=== PATIENT | female | born 1935 | race Caucasian/White ===

== ENCOUNTER 2016-10-11 15:12 | Emergency (ER) | payer MEDICARE, BC ==
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
--- OUTSIDE RECORDS SUMMARY | 2016-10-11 15:50 | XMS REPORT | Summary of Care ---
:1935 Author Organization [facility] Address [address] [place] [address] [id number] [place] [address] Care Team Providers Name Role Phone Domingo Salas Primary Care Physician Encounter Date(s): 09/14/16 - 09/14/16 [facility] [address] [id number] Discharge Diagnosis: Hypertension Discharge Diagnosis: Heart block Discharge Diagnosis: CVA - Cerebrovascular accident Discharge Diagnosis: Hypercholesterolemia Discharge Disposition: 01 Discharged to Home or Self Care Attending Physician: Guanaco Monge, Vital Signs No data available for this section Problem List Condition Effective Dates Status Health Status Informant Cancer, uterine(Confirmed) Active Cardiac pacemaker(Confirmed) 2007 Active Heart block(Confirmed) Active CVA - Cerebrovascular Active accident(Confirmed) Dementia(Confirmed) Active Depression(Confirmed) Active Diabetes mellitus(Confirmed) Active Vertigo(Confirmed) Active Hyperlipidemia(Confirmed) Active Hypercholesterolemia(Confirmed) Active Hypertension(Confirmed) Active Allergies, Adverse Reactions, Alerts No Known Medication Allergies Medications amLODIPine 2.5 mg oral tablet 1 tab(s), Oral, Daily, 0 Refill(s), Start Date: 06/11/14 11:41:00 CDT Start Date: 06/11/14 Status: Orderedaspirin 81 mg oral tablet 1 tab(s), Oral, Daily, 0 Refill(s), Start Date: 06/11/14 11:40:00 CDT Start Date: 06/11/14 Status: OrderedCalcium 600+D 1 tab(s), Oral, TID, 0 Refill(s), Start Date: 06/11/14 11:40:00 CDT Start Date: 06/11/14 Status: Ordereddonepezil 10 mg oral tablet 1 tab(s), Oral, HS, 0 Refill(s), Start Date: 06/11/14 11:39:00 CDT Start Date: 06/11/14 Status: Orderedlosartan 100 mg oral tablet 1 tab(s), Oral, Daily, 0 Refill(s), Start Date: 06/11/14 11:39:00 CDT Start Date: 06/11/14 Status: OrderedmetFORMIN 1000 mg oral tablet, extended release 1 tab(s), Oral, BID, 0 Refill(s), Start Date: 06/11/14 11:39:00 CDT Start Date: 06/11/14 Status: Orderedmultivitamin 1 tab(s), Oral, Daily, 0 Refill(s), Start Date: 06/11/14 11:40:00 CDT Start Date: 06/11/14 Status: OrderedNamenda 10 mg oral tablet 1 tab(s), Oral, BID, 0 Refill(s), Start Date: 06/11/14 11:39:00 CDT Start Date: 06/11/14 Status: Orderedoxybutynin 5 mg oral tablet 1 tab(s), Oral, QID, 0 Refill(s), Start Date: 06/11/14 11:38:00 CDT Start Date: 06/11/14 Status: Orderedsimvastatin 40 mg oral tablet 1 tab(s), Oral, HS, 0 Refill(s), Start Date: 06/11/14 11:39:00 CDT Start Date: 06/11/14 Status: Ordered Results No data available for this section Immunizations No data available for this section Procedures Procedure Date Related Diagnosis Body Site Implantation of heart pacemaker1 06/22/07 Hysterectomy Total replacement of right knee joint 1[employer] pacemaker Social History No data available for this section Assessment and Plan No data available for this section
[2016-10-11 16:53] VITALS: BP 188/78
== END 2016-10-11 17:00 | disposition home or self-care (01) ==
LOC: ER 15:12
DX: S40.012A Contusion of left shoulder, initial encounter (principal); W18.2XXA Fall in (into) shower or empty bathtub, initial encounter; Y93.E1 Activity, personal bathing and showering; Y92.002 Bathroom of unspecified non-institutional (private) residence as the place of occurrence of the external cause; M25.552 Pain in left hip; E11.9 Type 2 diabetes mellitus without complications; Z85.50 Personal history of malignant neoplasm of unspecified urinary tract organ

== ENCOUNTER 2017-01-14 12:36 | Inpatient (IN) | payer MEDICARE, BC ==
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
[2017-01-14 13:16] LABS: Hematocrit 31.5 % (37.0-47.0); Hemoglobin 10.2 gm/dL (12.5-16.0); Mean Cell Volume 90.8 fl (78-100); Mean Corpuscular Hemoglobin 29.4 pg (27-31); Mean Corpuscular Hgb Conc 32.4 g/dl (32-36); Mean Platelet Volume 8.9 fl (6.0-9.5); Neutrophil # 5.1 K/mm3 (1.3-6.0); Neutrophil % 60.2 % (42-75.0); Platelet Count 267 K/mm3 (150-450); Red Blood Count 3.47 M/mm3 (4.2-5.4); Red Cell Distribution Width 14.3 % (11.5-14.0); White Blood Count 8.4 K/mm3 (4.0-10.5)
[2017-01-14 13:29] LABS: Albumin * 2.7 gm/dl (3.4-5.0); BUN/Creatinine Ratio 23.1 (9.0-21.6); Bilirubin, Total 0.2 mg/dL (0.0-1.1); Ca. Corrected For Albumin 9.4 mg/dL (8.4-10.2); Calcium * 8.7 mg/dL (7.9-10.9); Carbon Dioxide 30.6 mmol/L (24-32.6); Potassium 4.6 mmol/L (3.4-4.6); Total Protein 7.2 gm/dL (6.2-8.2)
[2017-01-14 13:38] LABS: Urine Bilirubin Negative (NEGATIVE); Urine Blood 25 /ul (NEGATIVE); Urine Ketone Negative (NEGATIVE); Urine Protein >=300 mg/dL (NEGATIVE); Urine Specific Gravity 1.025 SP.GR. (1.005-1.010); Urine Urobilinogen Normal (NORMAL)
[2017-01-14 13:53] LABS: Urine Appearance Turbid; Urine Bacteria 4+; Urine Color Yellow; Urine Nitrite Positive (NEGATIVE); Urine RBC 0-5 /hpf (0-5); Urine WBC >50 /hpf (0-5)
[2017-01-14] MEDS ORDERED: NITROFURANTOIN/NITROFURAN MAC 100 MG CAPSULE PO ONE (14:01)
[2017-01-14] MEDS ORDERED: NITROFURANTOIN/NITROFURAN MAC 100 MG CAPSULE ONE (14:45)
[2017-01-14] MEDS ORDERED: LABETALOL HCL 5 MG/ML VIAL IV ONE (15:21)
[2017-01-14] MEDS ORDERED: FLU VACC QS2017-18(6MOS UP)/PF 60 MCG/0.5 ML SYRINGE IM ONE (16:38)
--- NOTE | 2017-01-14 17:41 | HP ---
Chief Complaint - Chief Complaint Date of Service: 01/14/17 Time of Service: 17:38 Chief Complaint: weakness for the last 2 days. History of Present Illness: The patient is a 81-year-old WF with history of HTN, T2DM w/ proteinuria, dementia, mixed incontinence who was brought to the ER by her daughter due to increased weakness. No localizing signs. She was found to have a UTI and mild anemia. She was admitted for possible IV fluids and started on oral Bactrim. Urine for sent for culture. BP elevated in the 190's most likely to anxiety w/ o localizing s/s - Patient's Past Medical History Patient History - Medical: Diabetes Type 2, Dementia Patient History - Cardiac/Respiratory: CVA/Stroke Patient History - Cancer: Other Patient History - Surgical Procedures: Hysterectomy, Total Knee Replacement, Other Patient History - Other: None LMP (females 10-50): post - Family History Mother Family History - Medical: Family History - Cardiac/Respiratory: No pertinent hx Family History - Cancer: Stomach Father Family History - Medical: Family History - Cardiac/Respiratory: No pertinent hx Family History - Cancer: No pertinent family hx - Social History Living Situations: home Psych History: Hx of Anxiety, Current tx/ever been on anti-depressants or anti- anxiety meds Smoking Status: Never smoker Have you smoked in the past 12 months: No Do you dip or chew tobacco: No Alcohol Use: none Drug Use: none - Immunizations Immunizations Up to Date: Yes Hx Pneumococcal Vaccination: Yes History of Influenza Vaccine: Yes Review Of Systems (GEN) - Review of Systems Generalized/Overall Review: Present: Weakness Respiratory: Absent: Cough, Shortness of Breath Cardiac: Absent: Chest Pain, Edema Neurological: Present: Anxiety Immunizations: IMMUNIZATION HX Immunizations Up to Date Yes History of Influenza Vaccine Yes Hx Pneumococcal Vaccination Yes Allergies/Adverse Reactions: Allergies Allergy/AdvReac Type Severity Reaction Status Date / Time No Known Allergies Allergy Verified 01/14/17 16:04 Home Medications: HOME MEDICATIONS Aspirin [Aspirin Chewable] 81 mg PO DAILY 07/11/13 [Last Taken 07/11/13] Calcium Carb, Citrate/Vit D3 [Calcium + D3 ER Tablet] 1 each PO DAILY 07/11/13 [ Last Taken 07/11/13] Donepezil HCl [Aricept Odt] 10 mg PO DAILY 04/16/14 [Last Taken 07/11/13] Losartan Potassium 100 mg PO DAILY 07/11/13 [Last Taken 07/11/13] Memantine HCl [Namenda] 10 mg PO BID 07/11/13 [Last Taken 07/11/13] Multivitamin [Multi Vitamin Daily] 1 each PO DAILY 07/11/13 [Last Taken 07/11/13 ] Oxybutynin Chloride 15 mg PO DAILY 07/11/13 [Last Taken 07/11/13] metFORMIN HCL [Metformin HCl ER] 1,000 mg PO BID 07/11/13 [Last Taken 07/11/13] Atorvastatin Calcium 20 mg PO DAILY 10/11/16 [Last Taken Unknown] Diltiazem HCl [Cardizem Cd] 120 mg PO DAILY 10/11/16 [Last Taken Unknown] Sertraline HCl [Zoloft] 50 mg PO DAILY 10/11/16 [Last Taken Unknown] Exam - Exam Vital Signs: Vital Signs - Last Taken Temp 36.8 C 01/14/17 14:37 Pulse 65 01/14/17 15:45 Resp 16 01/14/17 15:45 BP 178/90 01/14/17 15:45 Pulse Ox 96 01/14/17 15:45 Constitutional: Present: Elderly - alert, in NAD, orienteted x2 ENT Exam: Present: hearing grossly normal Eye Exam: bilateral eye: PERRL, EOMI Respiratory: Present: lungs clear, normal breath sounds. Absent: no accessory muscle use Cardiovascular/Chest: Present: regular rate, rhythm Abdomen: Present: Normal bowel sounds, soft, nontender Skin Exam: Present: warm/dry, pallor Appearance: Present: appropriate appearance, impaired recent memory. Absent: appropriate insight Eye contact: Present: cooperative, good eye contact Diagnostic Studies: Laboratory Tests 01/14/17 13:07 WBC 8.4 Hgb 10.2 L Hct 31.5 L Plt Count 267 01/14/17 13:07 Plasma Sodium 134 Potassium 4.6 Chloride 99 Carbon Dioxide 30.6 BUN 24 H D Creatinine 1.04 Est GFR (Non-Af Amer) 54 L D Random Glucose 120 H Calcium Adj for Albumin 9.4 Total Bilirubin 0.2 AST 17 ALT 13 L Alkaline Phosphatase 114 Total Protein 7.2 Albumin 2.7 L 01/14/17 13:07 Urine Protein >=300 H Urine Blood 25 H Urine Nitrate Positive H Prot Sulfosalicylic Acd 4+ H Ur Leukocyte Esterase 100 H Urine WBC >50 H Urine Bacteria 4+ H Urine Culture Comments Culture to follow Assessment/Plan - Procedures Results: 1. Weaknessand difficulty in walking. On IV fluids at NS 125 ml/hr. will obtain PT Due to significant weakness, confusion and UTI, patient will require at least 2 midnight stay. will try NH placemen when stable. 2. UTI : Start Ceftriaxone 1gm IV daily. C/S pending. has increasing confusion and higher risk of falls. 3 . Anemia : fe studies and B12 pending. 4 . Chronic medical conditions: HTN, T2DM, HLD, incontinence reviewed and stable.
[2017-01-14] MEDS ORDERED: LOSARTAN POTASSIUM 50 MG TABLET ONE (17:48)
[2017-01-14] MEDS: LOSARTAN POTASSIUM 50 MG TABLET PO SCH (17:50)
[2017-01-14] MEDS ORDERED: NORMAL SALINE 1,000 ML IV PRN (18:12)
[2017-01-14 20:34] LABS: Iron 36 mcg/dL (35-120); Transferrin Sat. (% Sat.) 13 % (15-55)
[2017-01-14] MEDS ORDERED: NITROFURANTOIN/NITROFURAN MAC 100 MG CAPSULE PO SCH (21:00)
[2017-01-14] MEDS ORDERED: DILTIAZEM HCL 120 MG CAP.SR.24H PO SCH (21:00)
[2017-01-14] MEDS: ROSUVASTATIN CALCIUM 10 MG TABLET PO SCH (22:14)
[2017-01-14] MEDS: MEMANTINE HCL 10 MG TABLET PO SCH (22:15)
[2017-01-15] MEDS: LOSARTAN POTASSIUM 50 MG TABLET PO SCH ×2 (07:00→08:13)
[2017-01-15] MEDS: ASPIRIN 81 MG TAB.CHEW PO SCH ×2 (07:01→08:13)
[2017-01-15] MEDS: OXYBUTYNIN CHLORIDE 5 MG TABLET PO SCH ×2 (07:02→08:13)
[2017-01-15] MEDS: DONEPEZIL HCL 10 MG TABLET PO SCH ×2 (07:02→08:12)
[2017-01-15] MEDS ORDERED: LABETALOL HCL 5 MG/ML VIAL IV ONE (07:09)
[2017-01-15] MEDS: SERTRALINE HCL 50 MG TABLET PO SCH (08:19)
[2017-01-15] MEDS: MEMANTINE HCL 10 MG TABLET PO SCH ×2 (08:20→20:34)
[2017-01-15] MEDS ORDERED: LOSARTAN POTASSIUM 100 MG PO SCH (09:00)
[2017-01-15] MEDS ORDERED: SULFAMETHOXAZOLE/TRIMETHOPRIM 1 TAB TABLET PO SCH (09:30)
[2017-01-15] MEDS: ROSUVASTATIN CALCIUM 10 MG TABLET PO SCH (20:34)
[2017-01-15] MEDS: DILTIAZEM HCL 180 MG CAP.SR.24H PO SCH (20:35)
[2017-01-16] MEDS: LOSARTAN POTASSIUM 50 MG TABLET PO SCH ×2 (05:25→08:25)
[2017-01-16] MEDS: OXYBUTYNIN CHLORIDE 5 MG TABLET PO SCH (08:28)
[2017-01-16] MEDS: ASPIRIN 81 MG TAB.CHEW PO SCH (08:28)
[2017-01-16] MEDS: DONEPEZIL HCL 10 MG TABLET PO SCH (08:28)
[2017-01-16] MEDS: SERTRALINE HCL 50 MG TABLET PO SCH (08:28)
[2017-01-16] MEDS: MEMANTINE HCL 10 MG TABLET PO SCH ×2 (08:29→20:25)
--- NOTE | 2017-01-16 17:04 | PN ---
Subjective - Date and Time Seen Date: 01/15/17 Time: 11:00 Subjective Narrative: Patient has significant weakness, has difficulty in standing requiring 2-3 assist; and is unable to walk to the bathroom. Patient was normally able to ambulate at home with the help of a walker. Systolic BP elevated 200-220 mm Hg requiring IV labetalol 10 mg .she denies any other complaints. Objective - Review of Systems Generalized/Overall Review: Reports: Weakness - in legs Respiratory: Denies: Cough, Shortness of Breath Cardiac: Denies: Chest Pain, Edema - Vitals Vitals: Vital Signs 01/15/17 06:00 Temperature 36.4 C L Pulse Rate 78 Respiratory 18 Rate Blood Pressure 227/88 O2 Sat by Pulse 93 Oximetry - Exam Constitutional: Present: Elderly - Alert, oriented 1. ENT Exam: Present: hearing grossly normal Neck: Present: normal inspection, trachea midline Respiratory: Present: lungs clear, normal breath sounds, no accessory muscle use Cardiovascular/Chest: Present: regular rate, rhythm. Absent: tachycardia Abdomen: Present: Normal bowel sounds, soft, nontender Extremity: Present: normal inspection, no pedal edema Skin Exam: Present: warm/dry, pallor Neurologic: Present: other - Weakness in lower extremities, symmetrical; no localizing signs; plantars downgoing. Able to raise against gravity.. Absent: aphasia, facial droop Eye contact: Present: cooperative, good eye contact Assessment/Plan Plan Narrative: 1. UTI : Start Ceftriaxone 1gm IV daily. Has increasing confusion per family since UTI. Admitted due to increasing confusion and due to higher risk of falls. Patient unable to walk more than 3-4 steps with 2 assist. Culture > 100,000 orgs per mL final c/s pending 2. Weaknessand difficulty in walking. Patient received 1 L IV fluids on admission. Obtain PT. most likely will require NH placement in stable. 3 . Anemia : Iron studies revealed T sat 13%[mild iron deficiency anemia] and B12 337 pg/ml . 4 . Chronic medical conditions: HTN, T2DM, HLD urinary incontinence, anemia , dementia reviewed and stable. 5. CODE STATUS DNR. DVT prophylaxis : Lovenox 40 mg daily.
--- NOTE | 2017-01-16 17:16 | PN ---
Subjective - Date and Time Seen Date: 01/16/17 Time: 17:11 Subjective Narrative: Patient continues to have significant weakness and lower extremities and confusion. Nurses attempted to walk for several times during the day [more than 8-unable to walk more than 3-4 steps at a time]. Was more oriented during the morning and became more confused as the evening wore on. Blood pressure has improved after diltiazem was changed from 120 to 180 mg at HS. Objective - Review of Systems Generalized/Overall Review: Reports: Weakness - in lower extremities. Respiratory: Denies: Cough, Shortness of Breath Cardiac: Denies: Chest Pain, Edema Genitourinary Symptoms: Reports: Incontinent - chronic - Vitals Vitals: Vital Signs Temp 36.8 C 01/16/17 14:58 Pulse 64 01/16/17 14:58 Resp 18 01/16/17 14:58 BP 167/61 01/16/17 14:58 Pulse Ox 96% RA 01/16/17 14:58 - Exam Constitutional: Present: Elderly - Alert, oriented 1 ENT Exam: Present: hearing grossly normal Neck: Present: normal inspection, trachea midline Respiratory: Present: lungs clear, normal breath sounds. Absent: no accessory muscle use Cardiovascular/Chest: Present: regular rate, rhythm. Absent: tachycardia Abdomen: Present: Normal bowel sounds, soft, nontender Extremity: Present: no pedal edema, other - strength - 3/5 able to raise lower legs against gravity.plantars downgoing Skin Exam: Present: warm/dry, pallor Eye contact: Present: cooperative, good eye contact Assessment/Plan Plan Narrative: 1. UTI : On Ceftriaxone 1gm IV day #2. Has increasing confusion and difficulty in ambulation per family since UTI. Patient unable to walk more than 3-4 steps with 2 assist. UC is growing Klebsiella pneumoniae sensitive to most antibiotics including ceftriaxone, Bactrim DS and ciprofloxacin. 2. Weaknessand difficulty in walking. Patient received 1 L IV fluids on admission. Obtain PT. most likely will require NH placement in stable. Check CBC and CMP on 01/17/2017. 3 . Anemia : Iron studies revealed T sat 13%[mild iron deficiency anemia] and B12 337 pg/ ml. [borserline low]. 4. Hypertension: Had elevated blood pressures in the 200s systolic on admission. Diltiazem ER was increased from 120 mg to 180 mg at HS with improvement in BP on 01/15/17. 4 . Chronic medical conditions: T2DM, HLD urinary incontinence, anemia , dementia reviewed and stable. 5. CODE STATUS: DNR. DVT prophylaxis : Lovenox 40 mg daily.
[2017-01-16] MEDS: ENOXAPARIN SODIUM 40 MG/0.4 ML SYRG SC SCH (17:55)
[2017-01-16] MEDS: DILTIAZEM HCL 180 MG CAP.SR.24H PO SCH (20:23)
[2017-01-16] MEDS: ROSUVASTATIN CALCIUM 10 MG TABLET PO SCH (20:24)
[2017-01-17] MEDS: LOSARTAN POTASSIUM 50 MG TABLET PO SCH (05:18)
[2017-01-17 06:23] LABS: Hematocrit 32.2 % (37.0-47.0); Hemoglobin 10.5 gm/dL (12.5-16.0); Mean Cell Volume 90.4 fl (78-100); Mean Corpuscular Hemoglobin 29.5 pg (27-31); Mean Corpuscular Hgb Conc 32.6 g/dl (32-36); Mean Platelet Volume 9.5 fl (6.0-9.5); Neutrophil # 5.2 K/mm3 (1.3-6.0); Neutrophil % 62.8 % (42-75.0); Platelet Count 259 K/mm3 (150-450); Red Blood Count 3.56 M/mm3 (4.2-5.4); Red Cell Distribution Width 14.2 % (11.5-14.0); White Blood Count 8.2 K/mm3 (4.0-10.5)
[2017-01-17 06:35] LABS: Albumin * 2.5 gm/dl (3.4-5.0); Anion Gap 10.8 mmol/L (6.8-13.8); BUN/Creatinine Ratio 23.5 (9.0-21.6); Bilirubin, Total 0.3 mg/dL (0.0-1.1); Ca. Corrected For Albumin 9.9 mg/dL (8.4-10.2); Carbon Dioxide 31.5 mmol/L (24-32.6); Potassium 4.3 mmol/L (3.4-4.6); Total Protein 7.2 gm/dL (6.2-8.2)
[2017-01-17] MEDS: ASPIRIN 81 MG TAB.CHEW PO SCH (08:36)
[2017-01-17] MEDS: OXYBUTYNIN CHLORIDE 5 MG TABLET PO SCH (08:36)
[2017-01-17] MEDS: DONEPEZIL HCL 10 MG TABLET PO SCH (08:36)
[2017-01-17] MEDS: SERTRALINE HCL 50 MG TABLET PO SCH (08:37)
[2017-01-17] MEDS: MEMANTINE HCL 10 MG TABLET PO SCH ×2 (08:37→21:20)
[2017-01-17] MEDS: CARVEDILOL 3.125 MG TABLET PO SCH ×2 (09:54→21:20)
[2017-01-17] MEDS: VALSARTAN 160MG PO SCH ×2 (11:33→21:57)
[2017-01-17] MEDS ORDERED: CARVEDILOL 3.125 MG TABLET PO STA (12:54)
[2017-01-17] MEDS ORDERED: amLODIPine BESYLATE 5 MG TABLET PO STA (12:56)
[2017-01-17] MEDS: ENOXAPARIN SODIUM 40 MG/0.4 ML SYRG SC SCH (17:35)
[2017-01-17] MEDS: ROSUVASTATIN CALCIUM 10 MG TABLET PO SCH (21:20)
[2017-01-17] MEDS ORDERED: LOSARTAN POTASSIUM 50 MG TABLET PO SCH (22:00)
[2017-01-18] MEDS ORDERED: LABETALOL HCL 5 MG/ML VIAL IV ONE (02:24)
[2017-01-18] MEDS: CARVEDILOL 3.125 MG TABLET PO SCH ×2 (07:10→09:21)
[2017-01-18] MEDS: DONEPEZIL HCL 10 MG TABLET PO SCH (09:56)
[2017-01-18] MEDS: MEMANTINE HCL 10 MG TABLET PO SCH ×2 (09:56→21:09)
[2017-01-18] MEDS: ASPIRIN 81 MG TAB.CHEW PO SCH (09:56)
[2017-01-18] MEDS: OXYBUTYNIN CHLORIDE 5 MG TABLET PO SCH (09:56)
[2017-01-18] MEDS: SERTRALINE HCL 50 MG TABLET PO SCH (09:59)
--- NOTE | 2017-01-18 13:23 | PN ---
Subjective - Date and Time Seen Date: 01/17/17 Time: 10:00 Subjective Narrative: Patient's confusion about the same. Family states patient got extremely confused on evening 01/16/17. Continues to have bilateral lower extremity weakness but is able to ambulate with PT about 40 feet with 1 assist however is taking 3 nurses to ambulate patient even a few feet. Objective - Review of Systems Respiratory: Denies: Cough, Shortness of Breath Cardiac: Denies: Chest Pain, Edema Musculoskeletal Complaints: Reports: Other - weakness in L.Extremities - Vitals Vitals: Vital Signs 01/16/17 06:16 Temperature 36.7 C Resp. rate 18 Blood Pressure 196/74 O2 Sat by Pulse 95% RA Oximetry - Abnormal Lab Findings Abnormal Lab Findings: Laboratory Tests 01/17/17 05:50 WBC 8.2 Hgb 10.5 L Hct 32.2 L Plt Count 259 01/17/17 05:50 Plasma Sodium 136 Potassium 4.3 Chloride 97 Carbon Dioxide 31.5 BUN 24 H Creatinine 1.02 Est GFR (Non-Af Amer) 55 L Random Glucose 148 H Calcium Adj for Albumin 9.9 Total Bilirubin 0.3 AST 19 ALT 14 L Alkaline Phosphatase 100 Total Protein 7.2 Albumin 2.5 L - Exam Constitutional: Present: Elderly - alert in NAD. ENT Exam: Present: hearing grossly normal Neck: Present: normal inspection, trachea midline Respiratory: Present: lungs clear, normal breath sounds. Absent: no accessory muscle use Cardiovascular/Chest: Present: regular rate, rhythm. Absent: tachycardia Abdomen: Present: Normal bowel sounds, soft, nontender Extremity: Present: normal inspection, no pedal edema Skin Exam: Present: warm/dry, pallor Assessment/Plan Plan Narrative: 1. UTI : On Ceftriaxone 1gm IV day #3. Has increasing confusion and difficulty in ambulation per family since UTI. Patient able to walk 40 feet today with PT, walking a lot less with nursing. Urine culture growing Klebsiella pneumoniae sensitive to most antibiotics including ceftriaxone, Bactrim DS and ciprofloxacin. 2. Weakness and difficulty in walking. Patient received 1 L IV fluids on admission. Started PT today. most likely will require NH placement when stable. CBC and CMP on 01/17/2017 obtained and reviewed. 3 . Anemia : Iron studies revealed T sat 13%[mild iron deficiency anemia] and B12 337 pg/ ml. [borderline low]. 4. Hypertension: Had elevated BP during the night requiring labetelol IV. D/C losartan and and diltiazem ER as blood pressures are still elevated. Start valsartan 160 mg PO twice a day and carvedilol 3.125 mg PO twice a day. 5. Chronic medical conditions: T2DM, HLD urinary incontinence, anemia , dementia reviewed and stable. 5. CODE STATUS: DNR. DVT prophylaxis : Lovenox 40 mg daily.
--- NOTE | 2017-01-18 13:32 | PN ---
Subjective - Date and Time Seen Date: 01/18/17 Time: 13:32 Subjective Narrative: Patient denies any complaints of headaches or dizziness. Blood pressures continue to remain high. Confusion is no worse. Working with physical therapy. Objective - Review of Systems Respiratory: Denies: Shortness of Breath, Orthopnea Cardiac: Denies: Chest Pain, Edema Musculoskeletal Complaints: Reports: Other - Weakness in lower extremities - Vitals Vitals: Vital Signs Temp 36.8 C 01/18/17 10:49 Pulse 62 01/18/17 10:57 Resp 18 01/18/17 10:49 BP 124/43 01/18/17 10:57 Pulse Ox 95 01/18/17 10:57 - Abnormal Lab Findings Abnormal Lab Findings: Laboratory Tests 05/11/16 06/09/16 09/22/16 10:32 10:10 14:30 Microalb/Creat Ratio 2145 H 603 H D 989 H 12/24/16 10:52 Microalb/Creat Ratio 4388 H - Exam Constitutional: Present: Elderly - Alert in no acute distress ENT Exam: Present: hearing grossly normal Neck: Present: normal inspection, trachea midline Respiratory: Present: lungs clear, normal breath sounds, no accessory muscle use Cardiovascular/Chest: Present: regular rate, rhythm. Absent: tachycardia Abdomen: Present: Normal bowel sounds, soft, nontender Skin Exam: Present: warm/dry, pallor Assessment/Plan Plan Narrative: 1. UTI : On Ceftriaxone 1gm IV day #4. Has increasing confusion and difficulty in ambulation per family since UTI. Patient able to walk 40 feet 01/17/17 with PT , walking a lot less with nursing. Urine culture growing Klebsiella pneumoniae sensitive to most antibiotics including ceftriaxone, Bactrim DS and ciprofloxacin. 2. Weakness in Lower Extremities: sudden onset with UTI. Not much improvement with IV antibiotics. Obtain SPEP and 24 hr UPEP. as patient has significant proteinuria which has worsened from 989 mcg/mgcr [09/22/16] to 4.388mcg/mgcr[12/24/16]; although this could be related to T2DM/HTN. 3 . Anemia : Iron studies revealed T sat 13%[mild iron deficiency anemia] and B12 337 pg/ ml. [borderline low]. 4. Hypertension: Had elevated BP during the night requiring labetelol IV. Patient did not receive valsartan 160 mg PO at night on 01/17/17. Patient was given losartan 100 mg PO at bedtime. Discussed with pharmacist to make sure patient will receive valsartan 160 mg PO twice a day to diminish proteinuria. D/C carvedilol. 5. Chronic medical conditions: T2DM, HLD urinary incontinence, anemia , dementia reviewed and stable. 5. CODE STATUS: DNR. DVT prophylaxis : Lovenox 40 mg daily.
[2017-01-18] MEDS ORDERED: VALSARTAN 160 MG TABLET PO ONE (15:00)
[2017-01-18] MEDS: ENOXAPARIN SODIUM 40 MG/0.4 ML SYRG SC SCH (18:29)
[2017-01-18] MEDS: ROSUVASTATIN CALCIUM 10 MG TABLET PO SCH (21:08)
[2017-01-18] MEDS: VALSARTAN 160 MG TABLET PO SCH (21:08)
[2017-01-19] MEDS: VALSARTAN 160MG PO SCH (04:29)
[2017-01-19] MEDS: MEMANTINE HCL 10 MG TABLET PO SCH (09:57)
[2017-01-19] MEDS: VALSARTAN 160 MG TABLET PO SCH (09:57)
[2017-01-19] MEDS: ASPIRIN 81 MG TAB.CHEW PO SCH (09:57)
[2017-01-19] MEDS: DONEPEZIL HCL 10 MG TABLET PO SCH (09:58)
[2017-01-19] MEDS: SERTRALINE HCL 50 MG TABLET PO SCH (09:58)
[2017-01-19] MEDS: OXYBUTYNIN CHLORIDE 5 MG TABLET PO SCH (09:58)
--- NOTE | 2017-01-19 13:15 | DS ---
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 DATE OF DISCHARGE: 01/19/17. DIAGNOSTICS: US of the kidneys with Doppler flow 01/18/17. DISCHARGE SUMMARY: Elva Baer is a 81-year-old WF with a history of HTN,T2DM with proteinuria, dementia, mixed incontinence who was brought to the ER by her daughter due to increased weakness and more confusion than usual w/o localizing signs. She was found to have a UTI and elevated blood pressures most likely secondary to anxiety. She was started on ceftriaxone 1 g IV daily. She was found to be mildly anemic with a T sat of 13%. Blood pressure medications were changed to valsartan 160 mg by mouth twice a day with improvement in BP. Patient became more confused towards the evenings. She also had difficulty in ambulating. Ultrasound of the kidneys with Doppler flow was obtained due to markedly elevated BPs. No evidence of renal artery stenosis was present. Nonspecific elevated resistive indices of the kidneys bilaterally which could be due to underlying intrinsic parenchymal disease[in the absence of significant renal artery stenosis]. Urine culture grew Klebsiella pneumoniae sensitive to a variety of antibiotics and the patient was discharged on ciprofloxacin 250 mg twice a day to complete a duration of 7 day antibiotic therapy. Due to markedly elevated BP, SPEP and UPEP were ordered. The patient was discharged in a stable condition to [facility] to skilled therapy for OT and PT. [A total of 40 minutes was spent with the patient and family including discussing plan of care, discharge planning, reconciliation of medications, preparation and dictating discharge summary.] Procedures Performed: none Results and Findings: Laboratory Tests 01/14/17 01/17/17 13:07 05:50 WBC 8.4 8.2 Hgb 10.2 L 10.5 L Hct 31.5 L 32.2 L Plt Count 267 259 01/14/17 01/17/17 13:07 05:50 Plasma Sodium 134 136 Potassium 4.6 4.3 Chloride 99 97 Carbon Dioxide 30.6 31.5 BUN 24 H D 24 H Creatinine 1.04 1.02 Est GFR (Non-Af Amer) 54 L D 55 L Random Glucose 120 H 148 H Calcium Adj for Albumin 9.4 9.9 Total Bilirubin 0.2 0.3 AST 17 19 ALT 13 L 14 L Alkaline Phosphatase 114 100 01/14/17 13:07 Transferrin % Sat 13 L Vitamin B12 331 01/19/17 13:54 Albumin 55 Rhnpz-1-Jyzjxyjzc 4 Odynb-7-Knznkicgn 8 Beta Globulins 14 Gamma Globulins 19 Abnorm Protein Band 1 Dnr Abnorm Protein Band 2 Dnr Abnorm Protein Band 3 Dnr Ur Creatinine 24 Hour 1.22 Ur Total Protein 24 Hr 2898 H Increase in alpha-1 globulins and alpha-2 globulins is consistent with an acute phase response. No monoclonal immunoglobulin detected. No Bence-Cruz proteins detected. Discharge Disposition: [facility] Disposition: [facility] Condition: Undetermined Discharge Activity: Activity as tolerated Discharge Diet: Consistent carbs, Low fat/chol, High Fiber Discharge Level of Care:: SNF - Detention Detention Therapy: Physicial Therapy, Occupation Therapy Referrals: Eric Arauz MD [Primary Care Provider] - Additional Patient Instructions (free text): Please make TCM appointment at discharge, if applicable. Thank you! Millicent @ [phone]. appt with Dr. Whittington in 1 week on 01-26-17 @ 1:45pm. aspiration precautions . upright in chair for 30 min after eating. Prescriptions (Any new or edited meds): Cholecalciferol (Vitamin D3) [Vitamin D3] 2,000 unit PO DAILY #100 Ciprofloxacin HCl [Cipro] 250 mg PO BID #4 tablet Valsartan [Diovan] 160 mg PO BID #60 tablet Complete Home Medications List: Complete Home Medication List: Aspirin [Aspirin Chewable] 81 mg PO DAILY 07/11/13 Donepezil HCl [Aricept Odt] 10 mg PO DAILY 07/11/13 Memantine HCl [Namenda] 10 mg PO BID 07/11/13 Oxybutynin Chloride 15 mg PO DAILY 07/11/13 metFORMIN HCL [Metformin HCl ER] 1,000 mg PO BID 07/11/13 Atorvastatin Calcium 20 mg PO DAILY 10/11/16 Sertraline HCl [Zoloft] 50 mg PO DAILY 10/11/16 Cholecalciferol (Vitamin D3) [Vitamin D3] 2,000 unit PO DAILY #100 01/19/17 Ciprofloxacin HCl [Cipro] 250 mg PO BID #4 tablet 01/19/17 Oxybutynin Chloride [Ditropan] 15 mg PO DAILY tablet 01/19/17 Valsartan [Diovan] 160 mg PO BID #60 tablet 01/19/17
[2017-01-19 13:21] VITALS: BP 106/50
[2017-01-20 16:27] LABS: Ab Band 1 DNR g/dL (NONE DETECTED); Ab Band 2 DNR g/dL (NONE DETECTED); Ab Band 3 DNR g/dL (NONE DETECTED); Alpha 1 Globulins 0.5 g/dL (0.2-0.3); Alpha 2 Globulins 1.2 g/dL (0.5-0.9); Beta 1 Globulins 0.5 g/dL (0.4-0.6); Gamma Globulins 1.5 g/dL (0.8-1.7)
[2017-01-22 11:58] LABS: Abnormal Protein Band 2 DNR mg/24 h (NONE DETECTED); Abnormal Protein Band 3 DNR mg/24 h (NONE DETECTED); Albumin 55 %; Alpha-1-Globulins 4 %; Alpha-2-Globulins 8 %; Beta Globulins 14 %; Creatinine, 24 Hour Urine 1.22 g/24 h (0.63-2.50); Gamma Globulins 19 %
== END 2017-01-19 14:45 | DRG 690 ==
LOC: ER 12:36 → MS 14:33 → OBSVTOIN 01-15 12:03
PROVIDERS: ADMIT Internal Medicine; ATTEND Internal Medicine
PROC: 0T9B7ZZ Drainage of Bladder, Via Natural or Artificial Opening (ICD-10-PCS; principal; 2017-01-14)
DX: N39.0 Urinary tract infection, site not specified (principal); B96.1 Klebsiella pneumoniae [K. pneumoniae] as the cause of diseases classified elsewhere; R53.1 Weakness; F03.90 Unspecified dementia, unspecified severity, without behavioral disturbance, psychotic disturbance, mood disturbance, and anxiety; D50.9 Iron deficiency anemia, unspecified; I10 Essential (primary) hypertension; E11.9 Type 2 diabetes mellitus without complications; N39.46 Mixed incontinence; Z79.82 Long term (current) use of aspirin; Z23 Encounter for immunization
CPT/HCPCS: 36415; 51701; 80053; 81001; 82607; 83540; 83550; 84156; 84165; 85025; 87077; 87086; 87186; 90686; 93005; 93976; 96374; 97110; 97116; 97162; 99285; G0008; G0378